=== PATIENT | female | born 1950 | race Caucasian/White ===

== ENCOUNTER → 2016-07-30 | Outpatient (CLI) | payer MEDICARE ==
[~2016-07-30] MED LIST: ASPIRIN 81MG TA81 MG PO; COD LIVER OIL1 CA1 PO; GLUCOSAMINE500 MG PO; HYDROCHLOROTHIA25 M1 PO; LEVAQUIN500 MG PO; LEVOTHROID PO; LIPITOR10 MG PO; LISINOPRIL/HCTZ1 TA3 PO; LISINOPRIL/HYDR1 TAB PO; METFORMIN500 MG PO; NORCO 325 MG-51 TAB PO; VITAMIN B-121000 MCG PO; VITAMIN D31000 IU PO; VITAMIN E400 I1 PO
[2016-07-30 18:59] LABS: BUN 23 mg/dL (7-18)
[2016-07-30 19:08] LABS: GFR (ESTIMATED) 50 ML/MIN (59-)
== END ==
LOC: CARL-LAB 08:21
PROVIDERS: Internal Medicine Adolescent Medicine
DX: E11.9 Type 2 diabetes mellitus without complications (principal)